=== PATIENT | female | born 1960 | race Caucasian/White ===

== ENCOUNTER 2020-05-16 15:26 | Outpatient (CLI) | payer OTHER, SELFPAY ==
--- NOTE | 2020-05-16 15:29 | ECG_ITS ---
Measurements Intervals [place] Rate: 71 P: 76 PA: 143 QRS: 38 QRSD: 94 T: 48 QT: 386 QTc: 421 Interpretive Statements SINUS RHYTHM DELAYED PRECORDIAL R/S TRANSITION BASELINE ARTIFACT- I, II, III, AVR, AVL, AVF BORDERLINE ECG Electronically Signed On 05-16-2020 16:12:15 CDT by Germán Husain D.O.
[2020-05-16 16:10] LABS: Anion Gap 11 mmol/L (8-16); Blood Urea Nitrogen 14 mg/dL (7-17); Calcium 9.4 mg/dL (8.4-10.2); Carbon Dioxide 24 mmol/L (22-30); Chloride 91 mmol/L (98-107); Estimated Glomerular Filt Rate > 60; Glucose 135 mg/dL (65-105); Potassium 3.5 mmol/L (3.4-5.0); Sodium 126 mmol/L (137-145)
== END 2020-05-16 15:27 | disposition home or self-care (01) ==
LOC: ANHSURGERY 15:29
PROVIDERS: Anesthesiology; PCP Family Medicine; Visit Provider Plastic Surgery
DX: I10 Essential (primary) hypertension (principal); R94.31 Abnormal electrocardiogram [ECG] [EKG]
CPT/HCPCS: 36415; 80048; 93005